=== PATIENT | male | born 2000 | race Caucasian/White ===

== ENCOUNTER 2019-04-03 20:24 | Emergency (ER) | payer OTHER ==
[~2019-04-03] VITALS: Ht 175.3 cm; Wt 69.4 kg
[~2019-04-03 20:24] MED LIST: PEPTOBISMOL
[2019-04-03 20:25] VITALS: BP_SYST 146
--- NOTE | 2019-04-03 23:01 | NUR ---
Patient to ER bed 06 to gown for evaluation. Side rails up. Report given to RUBEN ABURTO
--- NOTE | 2019-04-03 23:05 | NUR ---
PATIENT COMPLAINING OF ACUTE SHARP SUBSTERNAL CHEST PAIN TODAY STARTING AT 1900 WORSENING INTERMITTENTLY WITH SHORTNESS OF BREATH. PAIN 3/10. PATIENT REPORTS PAIN IS BETTER WHEN SITTING UP AND WORSENS WHEN EATING. NO THER COMPLAINT/INJURIES PER PATIENT OR NOTED. WILL CONTINUE TO MONITOR.
--- NOTE | 2019-04-03 23:20 | NUR ---
ER Dr. OLIVARES at bedside examining patient.
[2019-04-03 23:51] VITALS: BP_SYST 132
--- NOTE | 2019-04-03 23:51 | NUR ---
Patient given written and verbal discharge instructions and verbalizes understanding. ER MD discussed with patient the results and treatment provided. Patient in stable condition. ID arm band removed. No Rx given. Patient educated on pain management and to follow up with PMD in 2-3 days. Pain Scale 0/10 Opportunity for questions provided and answered. Medication side effect fact sheet provided.
== END 2019-04-03 23:51 | disposition home or self-care (01) ==
LOC: SED 20:24
DX: R07.89 Other chest pain (principal); J45.909 Unspecified asthma, uncomplicated
CPT/HCPCS: 71046-TC; 93005; 99283